=== PATIENT | male | born 1940 | race Caucasian/White ===

== ENCOUNTER → 2018-09-14 | Outpatient (CLI) | payer MEDICARE ==
--- NOTE | 2018-09-14 11:27 | Diagnostic Imaging Report ---
INDICATION: Left-sided rib pain for 3-4 weeks in lower left anterior ribs. TIME OF EXAM: 11:39 a.m. FINDINGS: Multiple views of the left ribs were obtained. No displaced rib fractures are seen. No parenchymal contusion, effusion, or pneumothorax is seen. There are some calcific densities in the left abdomen which are indeterminate. IMPRESSION: No displaced rib fracture is identified. Dictated by: Dictated on workstation # [id number]
== END ==
LOC: RAD 11:03
PROVIDERS: ATTEND Chiropractor Sports Physician
DX: R07.81 Pleurodynia (principal)
CPT/HCPCS: 71100